=== PATIENT | male | born 1985 | race Caucasian/White ===

== ENCOUNTER 2018-06-19 23:25 | Emergency (ER) | payer MEDICAID ==
[~2018-06-19] VITALS: Ht 175.3 cm; Wt 77.1 kg
[2018-06-19 23:48] VITALS: BP_SYST 137
[2018-06-20 00:21] VITALS: BP_SYST 137
== END 2018-06-20 00:21 | disposition home or self-care (01) ==
LOC: SED 23:25
DX: S90.32XA Contusion of left foot, initial encounter (principal); W20.8XXA Other cause of strike by thrown, projected or falling object, initial encounter; Y93.89 Activity, other specified; Y92.69 Other specified industrial and construction area as the place of occurrence of the external cause; Y99.8 Other external cause status
CPT/HCPCS: 99281

== ENCOUNTER 2018-07-11 21:58 | Emergency (ER) | payer MEDICAID ==
[~2018-07-11] VITALS: Ht 170.2 cm; Wt 63.5 kg
[2018-07-11 22:28] VITALS: BP_SYST 127
== END 2018-07-12 01:17 | disposition home or self-care (01) ==
LOC: SED 21:58
DX: Z00.00 Encounter for general adult medical examination without abnormal findings (principal)
CPT/HCPCS: 99281